=== PATIENT | male | born 1990 | race Caucasian/White ===

== ENCOUNTER 2016-12-13 13:06 | Observation (INO) ==
[2016-12-13] MEDS ORDERED: XYLOCAINE-MPF 1% INJ ONE (17:06)
[2016-12-13] MEDS ORDERED: ROCEPHIN IM ONE (17:06)
[2016-12-13 17:43] LABS: MANUAL DIFF NEEDED? NO
[2016-12-13 18:01] LABS: BASO% 0.2 % (0.0-0.8); EOS# 0.03 X1000 (0.0-0.7); EOS% 0.2 % (0.0-10.0); HEMATOCRIT 43.9 % (42.0-52.0); HEMOGLOBIN 15.2 g/dL (14.0-18.0); IMM GRAN# 0.02 X1000 (0.0-0.04); IMM GRAN% 0.2 % (0.0-0.5); LYMPH# 1.09 X1000 (1.2-3.4); MCH 29.1 PG (27-31); MCHC 34.6 g/dL (33-37); MCV 83.9 FL (81-99); MONO# 0.98 X1000 (0.11-0.59); MONO% 8.1 % (1.7-9.3); MPV 9.4 FL (7.4-10.4); NEUT% 82.3 % (42.2-75.2); PLT 334 X1000 (130-400); RBC 5.23 XMIL (4.7-6.1)
[2016-12-13] MEDS ORDERED: SUBOXONE 8 MG/2 MG SL ONE (18:11)
[2016-12-13] MEDS ORDERED: ZOFRAN PO PRN (18:20)
[2016-12-13] MEDS ORDERED: VANCOMYCIN 1 GM/NS 1 GM/250 ML IVPB IV ONE (18:20)
[2016-12-13] MEDS: TYLENOL PO PRN (18:48)
[2016-12-13 19:11] LABS: AGAP 15; CHLORIDE 100 mmol/L (98-107); POTASSIUM 3.7 mmol/L (3.5-5.1); SODIUM 139 mmol/L (136-145); TCO2 24 mmol/L (25-35)
[2016-12-13 19:12] LABS: ALBUMIN 4.5 g/dL (3.5-5.0); ALKALINE PHOSPHATASE 63 U/L (32-122); BUN 8 mg/dL (8-22); CALCIUM 9.3 mg/dL (8.8-10.2); COSMO 276; GOT 15 U/L (10-34); GPT 14 U/L (10-44); TOTAL PROTEIN 6.4 g/dL (6.3-8.3)
[2016-12-13] MEDS: SUBOXONE 8 MG/2 MG SL SCH (20:13)
[2016-12-13] MEDS: ROCEPHIN 1 GM/NS 1 GM/50 ML IVPB IV SCH (20:14)
[2016-12-14] MEDS: SUBOXONE 8 MG/2 MG SL SCH ×3 (04:47→20:00)
[2016-12-14] MEDS ORDERED: ZOFRAN ODT PO PRN (07:30)
[2016-12-14] MEDS: ROCEPHIN 1 GM/NS 1 GM/50 ML IVPB IV SCH ×2 (07:56→20:01)
[2016-12-14] MEDS: TYLENOL PO PRN (08:04)
[2016-12-14] MEDS ORDERED: TYLENOL PO PRN (08:24)
[2016-12-14] MEDS ORDERED: ZOFRAN IV PRN (08:24)
[2016-12-14] MEDS ORDERED: VANCOMYCIN IV PER PHARMACY MISC SCH (08:30)
[2016-12-14] MEDS ORDERED: VANCOMYCIN 2,250 MG in NS 500 ML IV ONE (09:00)
--- NOTE | 2016-12-14 11:38 | PROGRESS NOTE ---
DATE: 12/14/2016 SUBJECTIVE: Patient notes he had a fever earlier this morning. He currently is not feeling well. He is feeling lightheaded. Denies any chest pain or palpitations. States that the wound on his left groin area is still very tender to the touch and hurts when he moves. He denies any rashes elsewhere at this point. PHYSICAL EXAMINATION: Vital Signs: T-current 99, T-max 102.4 degrees at 7 this a.m., pulse 102, respiratory rate 20, BP 107/56, saturating 100 percent on room air. General: Patient is awake, alert. He is currently in no respiratory distress. He is pleasant to talk with. Speech is regular. HEENT: EOMs intact. Neck: Supple. CV: Regular rate. Chest: Clear. Abdomen: Soft. Extremities: Moves all extremities. Skin: He is noted to have an indurated with surrounding erythematous area of about 2 inches in his right inguinal region. Tender to touch. No apparent pus. This was drained in the ER. ASSESSMENT: 1. Abscess of the left inguinal region. This was drained in the emergency room. The wound culture is still pending. We will continue vancomycin and Rocephin until culture has returned. 2. Fever. 3. Tachycardia. 4. Sepsis secondary to abscess. Certainly expect this is going to be methicillin-resistant Staphylococcus aureus. We will continue to follow. Further orders as needed. cc: Joselo Suh MD
--- NOTE | 2016-12-14 14:57 | HISTORY AND PHYSICAL ---
CHIEF COMPLAINT: Swollen tender area left groin. HISTORY OF PRESENT ILLNESS: This is a 26-year-old male with a prior history of asthma, opiate addiction, on Suboxone, and depression. He presented to the emergency room complaining of a tender, red, swollen area to his left groin. He is unaware of any injury. He underwent I D in the emergency room with cultures pending. He has a dressing that is dry and intact to this area with some redness surrounding the dressing. He was given vancomycin and Rocephin in the emergency room and has been admitted for further evaluation and treatment. PAST MEDICAL HISTORY: Juvenile asthma, depression, prior opiate use. PAST SURGICAL HISTORY: Denies. SOCIAL HISTORY: He denies alcohol, tobacco, or illicit drug use. ALLERGIES: No known drug allergies. HOME MEDICATIONS: Suboxone 8 mg/2 mg 0.5 strip 3 times a day, Klonopin 1 mg b.i.d. p.r.n. anxiety, Lamictal 200 mg daily. REVIEW OF SYSTEMS: A 14 point review of systems is discussed with patient with pertinent positives stated in the HPI. He denies chest pain, palpitations, shortness of breath, cough, PND, orthopnea, nausea, vomiting, diarrhea, constipation, black or bloody vomitus, black or bloody stools, hematuria, dysuria, frequency, urgency. PHYSICAL EXAMINATION: GENERAL: This is a 26-year-old male who is sitting in the bed, in no distress. VITAL SIGNS: Blood pressure is 113/64 with a heart rate of 94, respirations are 18, temperature is 101 degrees with room air saturations of 98 to 100%. HEENT: Head is normocephalic, atraumatic. Pupils equal, round, react to light. EOMs are intact. Sclerae are anicteric. Mucous membranes are moist. NECK: Supple with trachea midline. CARDIOVASCULAR: Regular rate and rhythm. S1 and S2 appreciated. PULMONARY: Breath sounds are clear. No increased work of breathing noted. GASTROINTESTINAL: Abdomen is soft, nontender, nondistended. Bowel sounds in all 4 quadrants. BACK: No CVAT. No spine tenderness. MUSCULOSKELETAL: Good range of motion to joints, although left lower extremity is limited due to pain. NEUROLOGIC: She is alert and oriented x3. Cranial nerves 2 through 12 grossly intact. SKIN: Warm and dry. His left groin does have a dressing that is dry and intact with some erythema noted around the dressing. EXTREMITIES: No clubbing, cyanosis, or edema. Calves nontender. Pulses are palpable x4. DIAGNOSTICS: WBC is 12.1, with a hemoglobin of 15.2, hematocrit 43.9, and platelets of 334,000. Sodium is 139, potassium 3.7, BUN 8, creatinine 0.7, with a glucose of 96. Gram stain and wound culture from left thigh are pending. ASSESSMENT AND PLAN: 1. Fever. 2. Tachycardia. 3. Abscess. 4. History of depression. PLAN: He will be admitted to the hospital. We will continue with vancomycin as well as Rocephin for IV coverage, awaiting culture results. Once culture results return, antibiotics may be changed according to results. We will continue his Suboxone. Will identify his home medications and continue as appropriate. Further treatments pending hospital course. Dictated by KAMINI Adams for Joselo Suh MD cc: KAMINI Adams MD
[2016-12-14] MEDS: VANCOMYCIN 1,700 MG in NS 250 ML IV SCH (20:01)
[2016-12-15] MEDS: TYLENOL PO PRN (05:06)
[2016-12-15] MEDS: SUBOXONE 8 MG/2 MG SL SCH ×2 (05:06→12:35)
[2016-12-15 08:14] VITALS: BP 114/57
[2016-12-15] MEDS: ROCEPHIN 1 GM/NS 1 GM/50 ML IVPB IV SCH (08:48)
[2016-12-15] MEDS: VANCOMYCIN 1,700 MG in NS 250 ML IV SCH (10:43)
--- NOTE | 2016-12-16 07:05 | DISCHARGE SUMMARY ---
ADMISSION DATE: 12/13/2016 DISCHARGE DATE: 12/15/2016 ADMISSION DIAGNOSES: 1. Fever. 2. Tachycardia. 3. Abscess. 4. History of depression. DISCHARGE DIAGNOSES: 1. Left thigh abscess with Staph aureus. 2. Fever, resolved. 3. Tachycardia, resolved. 4. History of depression. SUMMARY OF FINDINGS: This is a 26-year-old male who presented to the emergency room complaining of a tender red swollen area to his left groin, unaware of any injury. Had an I and D in the emergency room with cultures obtained. A dressing that was dry and intact on arrival. Some redness surrounding the dressing. Started on vancomycin and Rocephin. His culture and sensitivity showed a Staph aureus infection, sensitive to clindamycin. He has remained afebrile, and so it is felt that he can safely be discharged home on p.o. antibiotics. DISCHARGE MEDICATIONS: Will include a prescription for clindamycin 300 mg p.o. t.i.d. for 7 days. He will continue his home medications of Suboxone 0.5 sublingually t.i.d., Lamictal 25 mg p.o. daily, Remeron 15 mg p.o. at bedtime, Paxil 30 mg p.o. daily. DISCHARGE INSTRUCTIONS: He has been given the physician referral line and information for the free clinic. He can safely be discharged home. TIME SPENT: A 35 minute discharge. Dictated by KAMINI Nieves for Joselo Suh MD cc: KAMINI Nieves MD
--- NOTE | 2016-12-16 07:06 | Extremity Venous Study ---
PROCEDURE NAME: Arterial U/S Left Groin - 12/13/2016 LIMITED LEFT INGUINAL ULTRASOUND: FINDINGS: Only 4 images were obtained in order to floyd the skin surface for the location of the left common femoral artery. A depth was noted for the referring physician.
--- NOTE | 2016-12-23 01:26 | PROVIDER DOCUMENTATION ---
This chart was entered by Octavia Hoffman Scribe, acting as scribe for Aldo Zeng MD. HPI-General Adult - General Source: patient <Cricket Snyder - Last Filed: 12/13/16 18:19> - General Source: patient - History of Present Illness -Gen Adult Nature of Presenting Problems: 26 yo M presents to the ER with complaint of L groin pain, onset yesterday. Pt states he thinks it might be a hernia or an abscess, no hx of either. States he has chills but has not checked his temperature. Told triage nurse that he ran out of suboxone x5 days ago. Location of Pain/Injury: reports: other (L groin) Pain Radiation: reports: no radiation Quality of Pain: reports: sharp Onset/Duration: reports: 24 hours ago <Aldo Zeng - Last Filed: 12/23/16 01:26> - General Chief Complaint: Groin Pain Stated Complaint: ABSCESS Time Seen by Provider: 12/13/16 14:34 Allergies/Adverse Reactions: Patient Allergies Allergy/AdvReac Type Severity Reaction Status Date / Time No Known Allergies Allergy Verified 03/12/16 03:49 Home Medications: Home Medication List Medication Instructions Recorded Confirmed Last Taken Type Buprenorphine HCl/Naloxone HCl 0.5 each SL TID #45 film 03/18/16 Unknown Rx [Suboxone 8 mg/2 mg Sl Film] Lamotrigine [Lamictal] 25 mg PO DAILY #37 tablet 03/18/16 Unknown Rx Mirtazapine [Remeron] 15 mg PO QHS #30 tablet 03/18/16 Unknown Rx Paroxetine [Paxil] 30 mg PO DAILY 30 Days 03/18/16 Unknown Rx Clindamycin [Cleocin] 300 mg PO TID #21 capsule 12/15/16 Unknown Rx Review of Systems - Adult - REVIEW OF SYSTEMS - ADULT Constitutional: reports: no symptoms reported <Cricket Snyder - Last Filed: 12/13/16 18:19> - REVIEW OF SYSTEMS - ADULT Constitutional: denies: chills, fever Eyes: reports: no symptoms reported Ears, Nose, Mouth & Throat: reports: no symptoms reported Cardiovascular: denies: chest pain, palpitations Respiratory: denies: cough, shortness of breath Gastrointestinal: reports: no symptoms reported Genitourinary: reports: no symptoms reported Musculoskeletal: reports: no symptoms reported Integumentary: reports: see HPI, other (abscess to L groin) Neurological: reports: no symptoms reported Psychiatric: reports: no symptoms reported Endocrine: reports: no symptoms reported Hematologic/Lymphatic: reports: no symptoms reported Allergic/Immunologic: reports: no symptoms reported All Other Systems: Reviewed and Negative <Aldo Zeng - Last Filed: 12/23/16 01:26> Past History - Adult - PAST MEDICAL HISTORY-ADULT Review of Records: reports: Old Records Reviewed <Cricket Snyder - Last Filed: 12/13/16 18:19> - PAST MEDICAL HISTORY-ADULT Review of Records: reports: Nursing Assessment Review, Medications Reviewed - IMMUNIZATION STATUS Childhood Immunizations: See Nurse Assessment Flu Vaccine: See Nurse Assessment <Aldo Zeng - Last Filed: 12/23/16 01:26> Physical Exam-General - CONSTITUTIONAL General Appearance: appears well <Cricket Snyder - Last Filed: 12/13/16 18:19> - PHYSICAL EXAM-ADULT Initial Vital Signs Reviewed: Yes - CONSTITUTIONAL General Appearance: alert, no apparent distress - EYES Eyes: PERRL/EOMI, pink conjunctivae - HEAD, EARS, NOSE, MOUTH & THROAT HENMT: normocephalic/atraumatic, normal ENT inspection - NECK Neck: supple, normal inspection - RESPIRATORY Respiratory: no respiratory distress, no accessory muscle use - CARDIOVASCULAR Cardiovascular: normal peripheral pulses, regular rate, rhythm - MUSCULOSKELETAL Back Exam: no CVA tenderness, no vertebral tenderness Extremity: normal gait, normal inspection - SKIN Integumentary: warm/dry, other (abscess to L groin) - NEUROLOGIC Neurologic: grossly normal, no motor/sensory deficits - PSYCHIATRIC Psych/Mental Status: normal mood/affect, normal thought content, normal thought process, oriented x 3 <Aldo Zeng - Last Filed: 12/23/16 01:26> Progress - PLAN OF CARE/RESULTS Progress/Plan/Lab Results: Vital Signs - 8 hr 12/13/16 13:08 Temperature 98 F Pulse Rate 102 H Respiratory Rate 18 Blood Pressure 105/65 O2 Sat by Pulse Oximetry 100 Laboratory Results - last 24 hr 12/13/16 17:35 WBC 12.10 H RBC 5.23 Hgb 15.2 Hct 43.9 MCV 83.9 MCH 29.1 MCHC 34.6 RDW Std Deviation 13.3 Plt Count 334 MPV 9.4 Immature Gran % (Auto) 0.2 Neut % (Auto) 82.3 H Lymph % (Auto) 9.0 L Garrett % (Auto) 8.1 Eos % (Auto) 0.2 Baso % (Auto) 0.2 Immature Gran # (Auto) 0.02 Neut # (Auto) 9.96 H Lymph # (Auto) 1.09 L Garrett # (Auto) 0.98 H Eos # (Auto) 0.03 Baso # (Auto) 0.02 Orders Category Date Time Status CBC WITH DIFF [HEME] Stat Lab 12/13/16 17:35 Completed CMP [COMPREHENSIVE METABOLIC PANEL] [CHEM] Stat Lab 12/13/16 17:35 Received WOUND CULTURE INC GRAM STAIN [RM] Routine Lab 12/13/16 17:04 Ordered Buprenorphine/Naloxone S.l. [Suboxone 8 mg/2 mg] Med 12/13/16 18:11 Once 0.5 each SL NOW ONE CefTRIAXONE [Rocephin] Med 12/13/16 17:06 Discontinued 1 gm IM NOW ONE Lidocaine 1% Pf [Xylocaine-Mpf 1%] Med 12/13/16 17:06 Discontinued 5 ml INJ NOW ONE Arterial U/S Left Groin Stat Ther 12/13/16 15:11 Completed Result Diagrams: 12/13/16 17:35 - CONSULTS/PCP/HOSPITALIST Notification #1 *Consult/PCP/Hospitalist*: Angeli Time Discussed: 18:14 Consult Disposition: Admit <Cricket Snyder - Last Filed: 12/13/16 18:19> - PLAN OF CARE/RESULTS Progress/Plan/Lab Results: Vital Signs - 8 hr 12/13/16 13:08 Temperature 98 F Pulse Rate 102 H Respiratory Rate 18 Blood Pressure 105/65 O2 Sat by Pulse Oximetry 100 Result Diagrams: 12/13/16 17:35 12/13/16 17:35 - CHANGE OF SHIFT REPORT (ED Provider) Report Given and Care Transferred to:: Dr. Snyder Time of Transfer: 17:55 Items Pending: Labs <Aldo Zeng - Last Filed: 12/23/16 01:26> Procedures - INCISION & DRAINAGE Site: L groin Anesthetic: 1%, Lidocaine/Xylocaine Volume of Anesthetic (ml's): 3 Blade Size: needle lancet (18 gauge) Drainage: Purulent <Aldo Zeng - Last Filed: 12/23/16 01:26> Departure - Departure Time of Disposition Decision: 18:14 Certified Medical Emergency: Emergent - Critical Care Note This patient required my direct & personal management of CC.: No <Cricket Snyder. - Last Filed: 12/13/16 18:19> - Departure Time of Disposition Decision: 18:14 Certified Medical Emergency: Emergent - Critical Care Note This patient required my direct & personal management of CC.: No <Aldo Zeng - Last Filed: 12/23/16 01:26> - Departure DIAGNOSIS: Abscess of left groin Disposition: ADMITTED INPATIENT 09 Condition: Good This chart was documented by the indicated scribe, (Octavia Hoffman Scribe) and accurately reflects the services I performed and decisions made by me, Aldo Zeng MD, as attested by the provider's signature.
== END 2016-12-15 14:40 | disposition home or self-care (01) ==
LOC: P.MEDSURG 13:06 → P.ED 13:06
PROVIDERS: ATTEND Family Medicine